=== PATIENT | male | born 1980 | race Caucasian/White ===

== ENCOUNTER → 2016-07-28 | Outpatient (CLI) | payer BC ==
[2016-07-28 15:11] LABS: CHLORIDE,CL 105 mmol/L (98-110); SODIUM,NA 141 mmol/L (136-146)
--- NOTE | 2016-07-29 20:44 | US ---
EXAMINATION: Scrotal ultrasound HISTORY: Testicular mass COMPARISON: None TECHNIQUE: Grayscale, color Doppler and spectral Doppler images obtained of the scrotum. FINDINGS: The testicles appear normal in size, contour and echogenicity demonstrating normal color a nd spectral Doppler flow. Both epididymides are enlarged and hypoechoic demonstrating increased col or Doppler flow. No hydrocele or varicocele. No scrotal wall thickening. IMPRESSION: 1. Enlarged heterogeneous epididymides, most likely representing epididymitis without orchitis. If f ullness does not resolve following treatment, consider follow-up imaging.
== END | disposition home or self-care (01) ==
LOC: MW.CHRC 14:25
PROVIDERS: ATTEND Family Medicine
DX: N50.9 Disorder of male genital organs, unspecified (principal); N50.89 Other specified disorders of the male genital organs; R36.1 Hematospermia
CPT/HCPCS: 36415; 76870; 76870-26; 80053; 81001; 85027; 85652; 86140; 93976; 93976-26